=== PATIENT | male | born 1960 | race Two or more races ===

== ENCOUNTER 2021-03-22 00:22 | Emergency (ER) | payer SELFPAY | END 2021-03-22 01:40 | disposition left against medical advice (07) | LOC: EMS 00:22 | DX: T50.901A Poisoning by unspecified drugs, medicaments and biological substances, accidental (unintentional), initial encounter (principal); Z53.21 Procedure and treatment not carried out due to patient leaving prior to being seen by health care provider; X58.XXXA Exposure to other specified factors, initial encounter ==